=== PATIENT | female | born 1945 ===

== ENCOUNTER 2020-04-03 01:15 | Observation (INO) ==
[2020-04-03] MEDS ORDERED: DEXTROSE 50% 25 GM/50 ML VIAL IV PRN (03:13)
[2020-04-03] MEDS ORDERED: ONDANSETRON 4 MG/2 ML VIAL IV PRN (03:13)
[2020-04-03] MEDS ORDERED: GLUCAGON 1 MG VIAL IM PRN (03:13)
[2020-04-03] MEDS: LEVOTHYROXINE 100 MCG TABLET PO SCH (05:49)
[2020-04-03 06:23] LABS: Basophils % 0.6 % (0.0-0.8); Eosinophils # 0.1 10*3/uL (0.0-0.87); Eosinophils % 0.9 % (0.00-10.9); Hematocrit 26.4 VOL% (35.7-47.0); Hemoglobin 9.9 GM/DL (12.0-16.0); Immature Granulocytes % 0.7 %; Immature Granulocytes Absolute 0.04 #; Lymphocytes # 0.7 10*3/uL (1.4-4.0); Lymphocytes % 13.3 % (21.3-54.2); Mean Corpuscular HGB Conc 37.5 GM/DL (32-36); Mean Corpuscular Volume 96.4 FL (87-102); Mean Platelet Volume 9.8 FL (9.6-12.0); Monocytes % 10.5 % (1.7-12.7); Platelet Count 120 T/CUMM (130-400); Red Blood Count 2.74 MC/CUMM (3.8-5.5); Red Cell Distribution Width 12.6 % (9.3-17.3); White Blood Count 5.4 T/CUMM (4-12)
[2020-04-03 06:50] LABS: Albumin 2.2 G/DL (3.4-5.0); Osmolality,Calculated 273.5 MOS/KG (273-304); Total Protein 5.4 G/DL (6.4-8.3)
[2020-04-03] MEDS ORDERED: NON-FORMULARY MEDICATION (Omeprazole 20 mg Capsule,Delayed Release(Dr/Ec)) PO SCH (09:00)
[2020-04-03] MEDS ORDERED: ERGOCALCIFEROL 50,000 UNIT CAPSULE PO SCH (09:00)
[2020-04-03 09:05] LABS: Basophils % 0.5 % (0.0-0.8); Eosinophils # 0.1 10*3/uL (0.0-0.87); Hemoglobin 9.6 GM/DL (12.0-16.0); Immature Granulocytes % 0.9 %; Immature Granulocytes Absolute 0.05 #; Lymphocytes # 1.1 10*3/uL (1.4-4.0); Lymphocytes % 19.5 % (21.3-54.2); Mean Corpuscular HGB Conc 38.4 GM/DL (32-36); Mean Corpuscular Volume 96.2 FL (87-102); Mean Platelet Volume 9.7 FL (9.6-12.0); Monocytes % 10.4 % (1.7-12.7); Neutrophils % 66.7 % (38.7-73.9); Platelet Count 127 T/CUMM (130-400); Red Cell Distribution Width 12.9 % (9.3-17.3); White Blood Count 5.5 T/CUMM (4-12)
[2020-04-03 09:26] LABS: Albumin 2.2 G/DL (3.4-5.0); Calcium 8.8 MG/DL (8.5-10.1); Osmolality,Calculated 274.5 MOS/KG (273-304); Total Protein 5.3 G/DL (6.4-8.3)
[2020-04-03] MEDS: lisinopriL 20 MG TABLET PO SCH (10:08)
[2020-04-03] MEDS: LACTULOSE 20 GM/30 ML UDCUP PO SCH ×3 (10:08→20:56)
[2020-04-03] MEDS: PANTOPRAZOLE 40 MG TABLET PO SCH (10:08)
[2020-04-03] MEDS: SIMETHICONE CHEW 80 MG TABLET PO SCH ×4 (10:08→20:55)
[2020-04-03] MEDS: RIFAXIMIN 550 MG TABLET PO SCH ×2 (10:08→20:56)
[2020-04-03] MEDS: POTASSIUM CHLORIDE 10 MEQ TABLET PO SCH (10:08)
[2020-04-03] MEDS: hydroCHLOROthiazide 12.5 MG CAPSULE PO SCH (10:08)
[2020-04-03 10:15] LABS: Thyroid Stimulating Hormone 1.79 uIU/ml (0.358-3.74)
[2020-04-03] MEDS: MAGNESIUM OXIDE 400 MG TABLET PO SCH (10:38)
[2020-04-03] MEDS: INSULIN REGULAR 100 UNIT/ML SUBCUT SCH ×4 (10:43→20:52)
[2020-04-04] MEDS: LEVOTHYROXINE 100 MCG TABLET PO SCH (05:49)
[2020-04-04 06:49] LABS: Basophils % 0.8 % (0.0-0.8); Eosinophils # 0.2 10*3/uL (0.0-0.87); Eosinophils % 4.3 % (0.00-10.9); Hematocrit 26.7 VOL% (35.7-47.0); Hemoglobin 10.2 GM/DL (12.0-16.0); Immature Granulocytes % 0.6 %; Immature Granulocytes Absolute 0.03 #; Lymphocytes # 1.7 10*3/uL (1.4-4.0); Lymphocytes % 32.5 % (21.3-54.2); Mean Corpuscular HGB Conc 38.2 GM/DL (32-36); Mean Corpuscular Volume 96.4 FL (87-102); Mean Platelet Volume 10.9 FL (9.6-12.0); Monocytes % 13.2 % (1.7-12.7); Neutrophils % 48.6 % (38.7-73.9); Platelet Count 88 T/CUMM (130-400); Red Blood Count 2.77 MC/CUMM (3.8-5.5); Red Cell Distribution Width 12.9 % (9.3-17.3); White Blood Count 5.1 T/CUMM (4-12)
[2020-04-04 06:50] LABS: Albumin 2.2 G/DL (3.4-5.0); Bilirubin,Total 1.5 MG/DL (0.2-1.0); Calcium 9.2 MG/DL (8.5-10.1); Osmolality,Calculated 267.2 MOS/KG (273-304); Total Protein 5.5 G/DL (6.4-8.3)
[2020-04-04 07:34] LABS: Platelet Estimate Decreased
[2020-04-04] MEDS ORDERED: INFLUENZA VIRUS VACCINE 0.5 ML SYRINGE IM ONE (09:00)
[2020-04-04] MEDS: MAGNESIUM OXIDE 400 MG TABLET PO SCH (09:36)
[2020-04-04] MEDS: SIMETHICONE CHEW 80 MG TABLET PO SCH ×2 (09:36→13:14)
[2020-04-04] MEDS: POTASSIUM CHLORIDE 10 MEQ TABLET PO SCH (09:36)
[2020-04-04] MEDS: PANTOPRAZOLE 40 MG TABLET PO SCH (09:36)
[2020-04-04] MEDS: hydroCHLOROthiazide 12.5 MG CAPSULE PO SCH (09:36)
[2020-04-04] MEDS: lisinopriL 20 MG TABLET PO SCH (09:36)
[2020-04-04] MEDS: LACTULOSE 20 GM/30 ML UDCUP PO SCH ×2 (09:36→09:39)
[2020-04-04] MEDS: RIFAXIMIN 550 MG TABLET PO SCH (09:36)
[2020-04-04] MEDS: INSULIN REGULAR 100 UNIT/ML SUBCUT SCH ×2 (09:37→13:15)
[2020-04-04 12:26] VITALS: BP 166/54
== END 2020-04-04 14:50 | disposition home health service (06) ==
LOC: N.3E → SUATTDRO 02:50
PROVIDERS: ADMIT Internal Medicine; ATTEND Family Medicine

== ENCOUNTER 2021-04-10 17:25 | Inpatient (IN) ==
[2021-04-10] MEDS ORDERED: SODIUM CHLORIDE 0.9% 1,000 ML IV PRN (20:39)
[2021-04-10] MEDS ORDERED: ACETAMINOPHEN 325 MG TABLET PO PRN (20:40)
[2021-04-10] MEDS ORDERED: DEXTROSE 50% 25 GM/50 ML VIAL IV PRN (20:40)
[2021-04-10] MEDS ORDERED: MORPHINE 2 MG/1 ML SYRINGE IV PRN (20:40)
[2021-04-10] MEDS ORDERED: diphenhydrAMINE CAP 25 MG CAPSULE PO PRN (20:40)
[2021-04-10] MEDS ORDERED: ZALEPLON 5 MG CAPSULE PO PRN (20:40)
[2021-04-10] MEDS ORDERED: GLUCAGON 1 MG VIAL IM PRN ×2 (20:40)
[2021-04-10] MEDS ORDERED: hydrALAZINE 20 MG/1 ML VIAL IV PRN (20:40)
[2021-04-10] MEDS ORDERED: ONDANSETRON 4 MG/2 ML VIAL IV PRN (20:40)
[2021-04-10] MEDS ORDERED: NICOTINE 21 MG/24 HR PATCH TRANSDERM PRN (20:40)
[2021-04-10] MEDS ORDERED: guaiFENesin/DM ER 600-30 MG TABLET PO PRN (20:40)
[2021-04-10 21:10] LABS: Basophils % 0.4 % (0.0-0.8); Eosinophils # 0.1 10*3/uL (0.0-0.87); Eosinophils % 2.2 % (0.00-10.9); Hematocrit 25.6 VOL% (35.7-47.0); Hemoglobin 8.4 GM/DL (12.0-16.0); Immature Granulocytes % 1.4 %; Immature Granulocytes Absolute 0.07 #; Lymphocytes # 1.4 10*3/uL (1.4-4.0); Lymphocytes % 27.1 % (21.3-54.2); Mean Corpuscular HGB Conc 32.8 GM/DL (32-36); Mean Corpuscular Volume 107.1 FL (87-102); Mean Platelet Volume 10.9 FL (9.6-12.0); Monocytes % 9.8 % (1.7-12.7); Neutrophils % 59.1 % (38.7-73.9); Platelet Count 95 T/CUMM (130-400); Red Blood Count 2.39 MC/CUMM (3.8-5.5); Red Cell Distribution Width 17.6 % (9.3-17.3)
[2021-04-10 21:29] LABS: Calcium 9.7 MG/DL (8.5-10.1); Osmolality,Calculated 297.4 MOS/KG (273-304); Potassium 3.5 MMOL/L (3.5-5.1)
[2021-04-10 21:32] LABS: Albumin 1.8 G/DL (3.4-5.0); Bilirubin,Direct 1.03 MG/DL (0.0-0.20); Bilirubin,Indirect 1.1 MG/DL (0.0-1.0); Bilirubin,Total 2.1 MG/DL (0.20-1.00); Total Protein 5.3 G/DL (6.4-8.2)
[2021-04-10 21:36] LABS: Folate 5.03 NG/ML (5.38-24.0); Vitamin B12 682 PG/ML (211-911)
[2021-04-10] MEDS: INSULIN LISPRO 100 UNIT/ML SUBCUT SCH (22:07)
[2021-04-10 22:11] LABS: Sedimentation Rate-Westergren 30 MM/HR (0-30)
[2021-04-10] MEDS: cefTRIAXone 1,000 MG in SODIUM CHLORIDE 0.9% 100 ML IV SCH (22:18)
[2021-04-10] MEDS: AZITHROMYCIN INJ 500 MG in SODIUM CHLORIDE 0.9% 250 ML IV SCH (23:16)
[2021-04-11 05:33] LABS: Basophils % 0.8 % (0.0-0.8); Eosinophils # 0.1 10*3/uL (0.0-0.87); Eosinophils % 2.5 % (0.00-10.9); Hematocrit 25.4 VOL% (35.7-47.0); Hemoglobin 8.7 GM/DL (12.0-16.0); Immature Granulocytes % 0.6 %; Immature Granulocytes Absolute 0.03 #; Lymphocytes # 1.4 10*3/uL (1.4-4.0); Lymphocytes % 28.7 % (21.3-54.2); Mean Corpuscular HGB Conc 34.3 GM/DL (32-36); Mean Corpuscular Volume 108.1 FL (87-102); Mean Platelet Volume 12.4 FL (9.6-12.0); Monocytes % 10.2 % (1.7-12.7); Neutrophils % 57.2 % (38.7-73.9); Platelet Count 83 T/CUMM (130-400); Red Blood Count 2.35 MC/CUMM (3.8-5.5); Red Cell Distribution Width 17.9 % (9.3-17.3); White Blood Count 4.8 T/CUMM (4-12)
[2021-04-11 05:39] LABS: Hypochromasia Slight; Microcytosis Slight; Ovalocytes Slight; Platelet Estimate Decreased
[2021-04-11 06:12] LABS: Calcium 9.9 MG/DL (8.5-10.1); Osmolality,Calculated 294.6 MOS/KG (273-304)
[2021-04-11] MEDS: ALBUTEROL/IPRATROPIUM 3 ML NEB RESP TX SCH ×4 (07:00→20:18)
[2021-04-11] MEDS: DEXTROSE 50% 25 GM/50 ML SYRINGE IV PRN ×2 (07:02→20:42)
[2021-04-11 07:20] LABS: Free T4 (Free Thyroxine) 1.71 NG/DL (0.76-1.46)
[2021-04-11] MEDS: INSULIN LISPRO 100 UNIT/ML SUBCUT SCH ×4 (09:12→21:21)
[2021-04-11] MEDS: PANTOPRAZOLE 40 MG TABLET PO SCH (09:47)
[2021-04-11] MEDS: FOLIC ACID 1 MG TABLET PO SCH ×2 (09:47→20:39)
[2021-04-11] MEDS: BISACODYL 5 MG TABLET PO SCH (09:48)
[2021-04-11] MEDS: cefTRIAXone 1,000 MG in SODIUM CHLORIDE 0.9% 100 ML IV SCH (21:21)
[2021-04-11] MEDS: AZITHROMYCIN INJ 500 MG in SODIUM CHLORIDE 0.9% 250 ML IV SCH (22:53)
[2021-04-12] MEDS: ALBUTEROL/IPRATROPIUM 3 ML NEB RESP TX SCH ×4 (00:45→19:50)
[2021-04-12 04:33] LABS: Basophils % 0.5 % (0.0-0.8); Eosinophils # 0.1 10*3/uL (0.0-0.87); Eosinophils % 1.4 % (0.00-10.9); Hematocrit 21.7 VOL% (35.7-47.0); Immature Granulocytes % 0.7 %; Immature Granulocytes Absolute 0.03 #; Lymphocytes % 22.8 % (21.3-54.2); Mean Corpuscular HGB Conc 32.7 GM/DL (32-36); Mean Corpuscular Volume 109.6 FL (87-102); Mean Platelet Volume 11.5 FL (9.6-12.0); Monocytes % 9.2 % (1.7-12.7); Neutrophils % 65.4 % (38.7-73.9); White Blood Count 4.4 T/CUMM (4-12)
[2021-04-12 04:39] LABS: Hemoglobin 7.1 GM/DL (12.0-16.0); Platelet Count 70 T/CUMM (130-400); Red Blood Count 1.98 MC/CUMM (3.8-5.5)
[2021-04-12 04:56] LABS: Albumin 1.6 G/DL (3.4-5.0); Bilirubin,Total 1.6 MG/DL (0.20-1.00); Calcium 9.9 MG/DL (8.5-10.1); Osmolality,Calculated 302.3 MOS/KG (273-304); Potassium 3.6 MMOL/L (3.5-5.1); Total Protein 4.4 G/DL (6.4-8.2)
[2021-04-12 05:02] LABS: Hypochromasia 1+; Target Cells Slight
[2021-04-12 05:03] LABS: Macrocytosis Slight; Ovalocytes Slight; Platelet Estimate Decreased
[2021-04-12 08:36] LABS: Hemoglobin A1 (Alkaline) 97.8 % (96.5-98.5); Hemoglobin A2 (Alkaline) 2.2 % (1.5-3.5)
[2021-04-12] MEDS: FOLIC ACID 1 MG TABLET PO SCH ×2 (09:10→22:15)
[2021-04-12] MEDS: PANTOPRAZOLE 40 MG TABLET PO SCH (09:10)
[2021-04-12] MEDS: BISACODYL 5 MG TABLET PO SCH (09:15)
[2021-04-12] MEDS ORDERED: SODIUM CHLORIDE 0.9% 250 ML IV ONE (09:49)
[2021-04-12] MEDS: INSULIN LISPRO 100 UNIT/ML SUBCUT SCH ×4 (11:54→21:25)
[2021-04-12] MEDS ORDERED: SODIUM CHLORIDE 0.9% 1,000 ML IV PRN (14:12)
[2021-04-12] MEDS ORDERED: MAGNESIUM SULF RIDER 1 GM/100 ML PREMIX IV ONE (14:19)
[2021-04-12] MEDS: SODIUM CHLORIDE 0.9% 1,000 ML IV SCH (15:05)
[2021-04-12] MEDS: PANTOPRAZOLE 40 MG VIAL IV SCH (22:15)
[2021-04-13] MEDS: ALBUTEROL/IPRATROPIUM 3 ML NEB RESP TX SCH ×4 (00:47→20:06)
[2021-04-13] MEDS: cefTRIAXone 1,000 MG in SODIUM CHLORIDE 0.9% 100 ML IV SCH ×2 (01:10→22:21)
[2021-04-13] MEDS: AZITHROMYCIN INJ 500 MG in SODIUM CHLORIDE 0.9% 250 ML IV SCH ×2 (01:36→23:16)
[2021-04-13 05:53] LABS: Basophils % 0.7 % (0.0-0.8); Eosinophils # 0.1 10*3/uL (0.0-0.87); Eosinophils % 3.5 % (0.00-10.9); Hematocrit 21.1 VOL% (35.7-47.0); Hemoglobin 6.7 GM/DL (12.0-16.0); Immature Granulocytes % 1.2 %; Immature Granulocytes Absolute 0.05 #; Lymphocytes # 1.1 10*3/uL (1.4-4.0); Lymphocytes % 26.5 % (21.3-54.2); Mean Corpuscular HGB Conc 31.8 GM/DL (32-36); Mean Corpuscular Volume 110.5 FL (87-102); Mean Platelet Volume 11.4 FL (9.6-12.0); Monocytes % 9.7 % (1.7-12.7); Neutrophils % 58.4 % (38.7-73.9); Platelet Count 70 T/CUMM (130-400); Red Blood Count 1.91 MC/CUMM (3.8-5.5); Red Cell Distribution Width 18.6 % (9.3-17.3)
[2021-04-13 06:06] LABS: Calcium 9.6 MG/DL (8.5-10.1); Osmolality,Calculated 305.1 MOS/KG (273-304); Potassium 3.9 MMOL/L (3.5-5.1)
[2021-04-13 06:24] LABS: Hypochromasia 2+; Microcytosis 1+; Platelet Estimate Decreased
[2021-04-13] MEDS: INSULIN LISPRO 100 UNIT/ML SUBCUT SCH ×4 (08:25→22:16)
[2021-04-13] MEDS: PANTOPRAZOLE 40 MG VIAL IV SCH ×2 (08:44→22:18)
[2021-04-13] MEDS: BISACODYL 5 MG TABLET PO SCH (08:49)
[2021-04-13] MEDS: FOLIC ACID 1 MG TABLET PO SCH ×2 (08:49→22:18)
[2021-04-13] MEDS ORDERED: SODIUM CHLORIDE 0.9% 1,000 ML IV PRN (10:06)
[2021-04-13] MEDS: SODIUM CHLORIDE 0.9% 1,000 ML IV SCH (14:25)
[2021-04-13] MEDS: DEXTROSE 5% NACL 0.45% 1,000 ML IV SCH ×3 (14:33→23:20)
[2021-04-14] MEDS: ALBUTEROL/IPRATROPIUM 3 ML NEB RESP TX SCH ×4 (00:36→18:42)
[2021-04-14 05:23] LABS: Basophils % 0.6 % (0.0-0.8); Eosinophils # 0.1 10*3/uL (0.0-0.87); Eosinophils % 4.1 % (0.00-10.9); Hematocrit 27.3 VOL% (35.7-47.0); Immature Granulocytes % 0.9 %; Immature Granulocytes Absolute 0.03 #; Lymphocytes % 29.8 % (21.3-54.2); Mean Corpuscular HGB Conc 31.9 GM/DL (32-36); Mean Corpuscular Volume 104.6 FL (87-102); Monocytes % 9.7 % (1.7-12.7); Neutrophils % 54.9 % (38.7-73.9); Platelet Count 56 T/CUMM (130-400); Red Cell Distribution Width 23.8 % (9.3-17.3); White Blood Count 3.4 T/CUMM (4-12)
[2021-04-14 05:37] LABS: Hemoglobin 8.7 GM/DL (12.0-16.0); Red Blood Count 2.61 MC/CUMM (3.8-5.5)
[2021-04-14 05:39] LABS: Calcium 9.3 MG/DL (8.5-10.1); Osmolality,Calculated 302.6 MOS/KG (273-304); Potassium 3.7 MMOL/L (3.5-5.1)
[2021-04-14 05:57] LABS: Hypochromasia Slight; Microcytosis Slight; Platelet Estimate Decreased
[2021-04-14] MEDS: DEXTROSE 5% NACL 0.45% 1,000 ML IV SCH ×3 (06:18→17:11)
[2021-04-14] MEDS: INSULIN LISPRO 100 UNIT/ML SUBCUT SCH ×4 (08:09→21:27)
[2021-04-14] MEDS: FOLIC ACID 1 MG TABLET PO SCH ×2 (10:16→21:22)
[2021-04-14] MEDS: BISACODYL 5 MG TABLET PO SCH (10:16)
[2021-04-14] MEDS: PANTOPRAZOLE 40 MG VIAL IV SCH ×2 (10:17→21:26)
[2021-04-14] MEDS: cefTRIAXone 1,000 MG in SODIUM CHLORIDE 0.9% 100 ML IV SCH (21:27)
[2021-04-14] MEDS: AZITHROMYCIN INJ 500 MG in SODIUM CHLORIDE 0.9% 250 ML IV SCH (22:30)
[2021-04-15] MEDS: ALBUTEROL/IPRATROPIUM 3 ML NEB RESP TX SCH ×3 (00:13→13:28)
[2021-04-15] MEDS: DEXTROSE 5% NACL 0.45% 1,000 ML IV SCH ×2 (05:30→10:22)
[2021-04-15 07:33] LABS: Basophils % 0.4 % (0.0-0.8); Eosinophils # 0.2 10*3/uL (0.0-0.87); Eosinophils % 7.8 % (0.00-10.9); Hematocrit 25.8 VOL% (35.7-47.0); Hemoglobin 8.3 GM/DL (12.0-16.0); Immature Granulocytes % 1.1 %; Immature Granulocytes Absolute 0.03 #; Lymphocytes # 0.8 10*3/uL (1.4-4.0); Lymphocytes % 31.2 % (21.3-54.2); Mean Corpuscular HGB Conc 32.2 GM/DL (32-36); Mean Platelet Volume 10.9 FL (9.6-12.0); Monocytes % 7.4 % (1.7-12.7); Neutrophils % 52.1 % (38.7-73.9); Platelet Count 46 T/CUMM (130-400); Red Blood Count 2.53 MC/CUMM (3.8-5.5); Red Cell Distribution Width 23.4 % (9.3-17.3); White Blood Count 2.7 T/CUMM (4-12)
[2021-04-15 07:42] LABS: Calcium 9.1 MG/DL (8.5-10.1); Osmolality,Calculated 296.7 MOS/KG (273-304); Potassium 3.4 MMOL/L (3.5-5.1)
[2021-04-15 08:28] LABS: Platelet Estimate Decreased
[2021-04-15 08:29] LABS: Anisocytosis 2+; Burr Cells 1+; Target Cells Few
[2021-04-15 08:30] LABS: Macrocytosis 1+; Poikilocytosis 1+
[2021-04-15] MEDS: FOLIC ACID 1 MG TABLET PO SCH (10:16)
[2021-04-15] MEDS: BISACODYL 5 MG TABLET PO SCH (10:16)
[2021-04-15] MEDS: PANTOPRAZOLE 40 MG VIAL IV SCH (10:22)
[2021-04-15] MEDS: INSULIN LISPRO 100 UNIT/ML SUBCUT SCH ×3 (10:22→16:32)
[2021-04-15 16:06] VITALS: BP 135/48
== END 2021-04-15 18:45 | DRG 193 ==
LOC: N.TELES 20:07 → SUATTDRO 20:07
PROVIDERS: ADMIT Internal Medicine; ATTEND Emergency Medicine

== ENCOUNTER 2021-05-03 15:55 | Inpatient (IN) ==
[2021-05-03] MEDS ORDERED: ALBUTEROL 2.5 MG/3 ML NEB RESP TX PRN (16:07)
[2021-05-03] MEDS ORDERED: MORPHINE 2 MG/1 ML SYRINGE IV PRN (16:08)
[2021-05-03] MEDS ORDERED: ACETAMINOPHEN 325 MG TABLET PO PRN (16:08)
[2021-05-03] MEDS ORDERED: ONDANSETRON 4 MG/2 ML VIAL IV PRN (16:08)
[2021-05-03] MEDS ORDERED: PANTOPRAZOLE 40 MG VIAL IV SCH (21:00)
[2021-05-03] MEDS ORDERED: NOREPINEPHRINE 8 MG in SODIUM CHLORIDE 0.9% 242 ML IV PRN (21:16)
[2021-05-03 21:18] LABS: Basophils % 0.2 % (0.0-0.8); Eosinophils % 0.4 % (0.00-10.9); Hematocrit 27.7 VOL% (35.7-47.0); Hemoglobin 9.2 GM/DL (12.0-16.0); Immature Granulocytes % 0.6 %; Immature Granulocytes Absolute 0.03 #; Lymphocytes # 0.5 10*3/uL (1.4-4.0); Lymphocytes % 10.3 % (21.3-54.2); Mean Corpuscular HGB Conc 33.2 GM/DL (32-36); Mean Corpuscular Volume 98.2 FL (87-102); Mean Platelet Volume 12.1 FL (9.6-12.0); Neutrophils % 85.5 % (38.7-73.9); Platelet Count 68 T/CUMM (130-400); Red Blood Count 2.82 MC/CUMM (3.8-5.5); Red Cell Distribution Width 24.1 % (9.3-17.3); White Blood Count 4.7 T/CUMM (4-12)
[2021-05-03 21:35] LABS: Bilirubin,Urine Negative (Negative); Blood, Urine Moderate mg/dL (Negative); Glucose,Urine (UA) Negative (Negative); Ketones,Urine 5 mg/dL (Negative); Nitrite,Urine Negative (Negative); Protein,Urine 100 MG/DL; Urine Appearance CLOUDY (Clear); Urine Color Red (Yellow); Urine Urobilinogen < 2.0 EU/DL (<2.0)
[2021-05-03 21:40] LABS: Albumin 1.7 G/DL (3.4-5.0); Bilirubin,Total 1.5 MG/DL (0.20-1.00); Calcium 10.9 MG/DL (8.5-10.1); Osmolality,Calculated 298.6 MOS/KG (273-304); Potassium 4.2 MMOL/L (3.5-5.1); Total Protein 5.5 G/DL (6.4-8.2)
[2021-05-03] MEDS: HYDROCORTISONE 100 MG VIAL IV SCH (21:59)
[2021-05-03] MEDS ORDERED: MEROPENEM 500 MG in SODIUM CHLORIDE 0.9% 100 ML IV SCH (22:00)
[2021-05-03] MEDS ORDERED: DEXTROSE 50% 25 GM/50 ML SYRINGE IV PRN (22:08)
[2021-05-03] MEDS ORDERED: GLUCAGON 1 MG VIAL IM PRN (22:08)
[2021-05-03] MEDS: LACTATED RINGERS 1,000 ML IV SCH (22:47)
[2021-05-03] MEDS ORDERED: LEVOFLOXACIN INJ 750 MG/150 ML PREMIX IV SCH (23:00)
[2021-05-04] MEDS: HYDROCORTISONE 100 MG VIAL IV SCH ×4 (03:27→21:10)
[2021-05-04] MEDS: LEVOTHYROXINE 100 MCG TABLET PO SCH (05:59)
[2021-05-04] MEDS: MEROPENEM 500 MG in SODIUM CHLORIDE 0.9% 100 ML IV SCH ×3 (05:59→21:10)
[2021-05-04 06:36] LABS: Hematocrit 27.2 VOL% (35.7-47.0); Hemoglobin 9.1 GM/DL (12.0-16.0); Immature Granulocytes Absolute 0.06 #; Lymphocytes # 0.7 10*3/uL (1.4-4.0); Lymphocytes % 11.9 % (21.3-54.2); Mean Corpuscular HGB Conc 33.5 GM/DL (32-36); Mean Corpuscular Volume 97.5 FL (87-102); Monocytes % 1.4 % (1.7-12.7); Neutrophils % 85.7 % (38.7-73.9); Platelet Count 71 T/CUMM (130-400); Red Blood Count 2.79 MC/CUMM (3.8-5.5); White Blood Count 5.8 T/CUMM (4-12)
[2021-05-04 07:04] LABS: Hypochromia 1+; Microcytosis 1+; Ovalocytes Slight; Platelet Estimate Decreased
[2021-05-04 07:08] LABS: Albumin 1.6 G/DL (3.4-5.0); Osmolality,Calculated 298.7 MOS/KG (273-304); Potassium 4.7 MMOL/L (3.5-5.1); Total Protein 5.4 G/DL (6.4-8.2)
[2021-05-04 10:33] LABS: RBC,Urine 48 /HPF (0-4)
[2021-05-04] MEDS: LACTATED RINGERS 1,000 ML IV SCH ×2 (10:38→20:30)
[2021-05-04] MEDS: INSULIN REGULAR 100 UNIT/ML SUBCUT SCH ×4 (10:39→20:28)
[2021-05-04] MEDS: GABAPENTIN 100 MG CAPSULE PO SCH ×2 (10:40→20:29)
[2021-05-04] MEDS: RIFAXIMIN 550 MG TABLET PO SCH ×2 (10:40→20:29)
[2021-05-04] MEDS: FERROUS SULFATE 325 MG TABLET PO SCH ×2 (10:41→20:30)
[2021-05-04] MEDS: ENOXAPARIN 30 MG/0.3 ML SYRINGE SUBCUT SCH (10:42)
[2021-05-04] MEDS: ALBUTEROL/IPRATROPIUM 3 ML NEB RESP TX SCH ×2 (13:50→20:30)
[2021-05-04] MEDS: CITALOPRAM 20 MG TABLET PO SCH (20:29)
[2021-05-04] MEDS: MIRTAZAPINE 15 MG TABLET PO SCH (20:30)
[2021-05-05] MEDS: ALBUTEROL/IPRATROPIUM 3 ML NEB RESP TX SCH ×4 (03:05→19:47)
[2021-05-05] MEDS: HYDROCORTISONE 100 MG VIAL IV SCH ×4 (03:19→20:52)
[2021-05-05] MEDS: MEROPENEM 500 MG in SODIUM CHLORIDE 0.9% 100 ML IV SCH ×2 (06:13→16:19)
[2021-05-05] MEDS: LEVOTHYROXINE 100 MCG TABLET PO SCH (06:13)
[2021-05-05 06:55] LABS: Calcium 10.3 MG/DL (8.5-10.1); Osmolality,Calculated 285.5 MOS/KG (273-304); Potassium 4.3 MMOL/L (3.5-5.1)
[2021-05-05] MEDS: LACTATED RINGERS 1,000 ML IV SCH ×4 (07:35→20:56)
[2021-05-05 08:13] LABS: Basophils % 0.1 % (0.0-0.8); Hematocrit 23.2 VOL% (35.7-47.0); Hemoglobin 7.8 GM/DL (12.0-16.0); Immature Granulocytes % 1.1 %; Immature Granulocytes Absolute 0.08 #; Lymphocytes # 0.4 10*3/uL (1.4-4.0); Mean Corpuscular HGB Conc 33.6 GM/DL (32-36); Mean Corpuscular Volume 98.3 FL (87-102); Mean Platelet Volume 11.2 FL (9.6-12.0); Monocytes % 3.7 % (1.7-12.7); Neutrophils % 90.1 % (38.7-73.9); Platelet Count 63 T/CUMM (130-400); Red Blood Count 2.36 MC/CUMM (3.8-5.5); Red Cell Distribution Width 24.5 % (9.3-17.3); White Blood Count 7.1 T/CUMM (4-12)
[2021-05-05 08:32] LABS: Hypochromia 1+; Microcytosis 1+
[2021-05-05 08:33] LABS: Acanthocytes Few; Ovalocytes Slight; Platelet Estimate Decreased; Target Cells Slight
[2021-05-05] MEDS: GABAPENTIN 100 MG CAPSULE PO SCH ×2 (09:15→20:52)
[2021-05-05] MEDS: SODIUM BICARBONATE 650 MG TABLET PO SCH ×2 (09:15→20:52)
[2021-05-05] MEDS: RIFAXIMIN 550 MG TABLET PO SCH ×2 (09:15→20:52)
[2021-05-05] MEDS: FERROUS SULFATE 325 MG TABLET PO SCH ×2 (09:15→20:52)
[2021-05-05] MEDS: PANTOPRAZOLE 40 MG TABLET PO SCH (09:15)
[2021-05-05] MEDS: ENOXAPARIN 30 MG/0.3 ML SYRINGE SUBCUT SCH (09:16)
[2021-05-05] MEDS: INSULIN REGULAR 100 UNIT/ML SUBCUT SCH ×4 (09:16→20:51)
[2021-05-05] MEDS ORDERED: ERTAPENEM 500 MG in SODIUM CHLORIDE 0.9% 100 ML IV SCH (12:00)
[2021-05-05] MEDS: CITALOPRAM 20 MG TABLET PO SCH (20:52)
[2021-05-05] MEDS: MIRTAZAPINE 15 MG TABLET PO SCH (20:52)
[2021-05-06] MEDS: HYDROCORTISONE 100 MG VIAL IV SCH ×4 (02:22→22:10)
[2021-05-06] MEDS: MEROPENEM 500 MG in SODIUM CHLORIDE 0.9% 100 ML IV SCH ×3 (02:22→17:07)
[2021-05-06] MEDS: ALBUTEROL/IPRATROPIUM 3 ML NEB RESP TX SCH ×4 (02:38→19:13)
[2021-05-06 05:15] LABS: Basophils % 0.1 % (0.0-0.8); Hemoglobin 7.6 GM/DL (12.0-16.0); Immature Granulocytes % 1.4 %; Immature Granulocytes Absolute 0.11 #; Lymphocytes # 0.5 10*3/uL (1.4-4.0); Lymphocytes % 6.2 % (21.3-54.2); Mean Corpuscular Volume 98.3 FL (87-102); Monocytes % 4.9 % (1.7-12.7); Neutrophils % 87.4 % (38.7-73.9); Platelet Count 61 T/CUMM (130-400); Red Blood Count 2.34 MC/CUMM (3.8-5.5)
[2021-05-06 05:35] LABS: Hypochromia 1+
[2021-05-06 05:36] LABS: Acanthocytes Few; Anisocytosis 1+; Microcytosis 1+; Ovalocytes Slight
[2021-05-06 05:37] LABS: Platelet Estimate Decreased
[2021-05-06] MEDS: LEVOTHYROXINE 100 MCG TABLET PO SCH (05:41)
[2021-05-06] MEDS: LACTATED RINGERS 1,000 ML IV SCH ×2 (05:41→15:44)
[2021-05-06 05:53] LABS: % Iron Saturation 79.2 % (18-50); Calcium 10.5 MG/DL (8.5-10.1); Ferritin 2161.9 ng/mL (8-252); Osmolality,Calculated 285.7 MOS/KG (273-304); Potassium 4.2 MMOL/L (3.5-5.1)
[2021-05-06] MEDS: PANTOPRAZOLE 40 MG TABLET PO SCH (08:59)
[2021-05-06] MEDS: FERROUS SULFATE 325 MG TABLET PO SCH ×2 (08:59→22:09)
[2021-05-06] MEDS: GABAPENTIN 100 MG CAPSULE PO SCH ×2 (08:59→22:09)
[2021-05-06] MEDS: INSULIN REGULAR 100 UNIT/ML SUBCUT SCH ×4 (08:59→22:09)
[2021-05-06] MEDS: RIFAXIMIN 550 MG TABLET PO SCH ×2 (08:59→22:09)
[2021-05-06] MEDS: SODIUM BICARBONATE 650 MG TABLET PO SCH ×2 (09:00→22:10)
[2021-05-06] MEDS: ENOXAPARIN 30 MG/0.3 ML SYRINGE SUBCUT SCH (09:00)
[2021-05-06] MEDS: MENTHOL/ZINC OXIDE OINT 71 GM JAR TOP SCH ×2 (15:45→22:10)
[2021-05-06] MEDS: CITALOPRAM 20 MG TABLET PO SCH (22:09)
[2021-05-06] MEDS: MIRTAZAPINE 15 MG TABLET PO SCH (22:09)
[2021-05-07] MEDS: ALBUTEROL/IPRATROPIUM 3 ML NEB RESP TX SCH ×4 (01:22→20:11)
[2021-05-07] MEDS: MEROPENEM 500 MG in SODIUM CHLORIDE 0.9% 100 ML IV SCH ×3 (02:05→18:12)
[2021-05-07] MEDS: LACTATED RINGERS 1,000 ML IV SCH ×3 (02:05→18:11)
[2021-05-07] MEDS: HYDROCORTISONE 100 MG VIAL IV SCH ×4 (02:06→22:23)
[2021-05-07 05:03] LABS: Basophils % 0.1 % (0.0-0.8); Hematocrit 23.1 VOL% (35.7-47.0); Hemoglobin 7.7 GM/DL (12.0-16.0); Immature Granulocytes % 2.1 %; Immature Granulocytes Absolute 0.14 #; Lymphocytes # 0.4 10*3/uL (1.4-4.0); Lymphocytes % 6.5 % (21.3-54.2); Mean Corpuscular HGB Conc 33.3 GM/DL (32-36); Mean Platelet Volume 11.9 FL (9.6-12.0); Monocytes % 4.3 % (1.7-12.7); NRBC # 0.02 10*3/uL; Red Blood Count 2.31 MC/CUMM (3.8-5.5); Red Cell Distribution Width 25.2 % (9.3-17.3); White Blood Count 6.8 T/CUMM (4-12)
[2021-05-07 05:09] LABS: Platelet Count 63 T/CUMM (130-400)
[2021-05-07] MEDS ORDERED: ALBUMIN 5% 25 GM/500 ML VIAL IV ONE (05:13)
[2021-05-07 05:22] LABS: Albumin 1.6 G/DL (3.4-5.0); Calcium 10.5 MG/DL (8.5-10.1); Osmolality,Calculated 285.1 MOS/KG (273-304); Potassium 4.6 MMOL/L (3.5-5.1); Total Protein 4.8 G/DL (6.4-8.2)
[2021-05-07] MEDS: LEVOTHYROXINE 100 MCG TABLET PO SCH (05:29)
[2021-05-07 07:16] LABS: Lymphocytes 4 % (20-55); Segmented Neutrophils 94 % (50-85); Total Cells Counted 100
[2021-05-07 07:17] LABS: Burr Cells Few; Elliptocytes Few; Platelet Estimate Decreased; Target Cells Few
[2021-05-07 07:18] LABS: Ovalocytes Few; Schistocytes Slight
[2021-05-07] MEDS: ENOXAPARIN 30 MG/0.3 ML SYRINGE SUBCUT SCH (09:59)
[2021-05-07] MEDS: INSULIN REGULAR 100 UNIT/ML SUBCUT SCH ×4 (10:00→22:16)
[2021-05-07] MEDS: MENTHOL/ZINC OXIDE OINT 71 GM JAR TOP SCH ×2 (10:02→22:16)
[2021-05-07] MEDS: GABAPENTIN 100 MG CAPSULE PO SCH ×2 (10:13→22:15)
[2021-05-07] MEDS: RIFAXIMIN 550 MG TABLET PO SCH ×2 (10:14→22:15)
[2021-05-07] MEDS: FERROUS SULFATE 325 MG TABLET PO SCH ×2 (10:14→22:15)
[2021-05-07] MEDS: PANTOPRAZOLE 40 MG TABLET PO SCH (10:14)
[2021-05-07] MEDS: SODIUM BICARBONATE 650 MG TABLET PO SCH ×2 (10:14→22:15)
[2021-05-07] MEDS: CITALOPRAM 20 MG TABLET PO SCH (22:15)
[2021-05-07] MEDS: INSULIN GLARGINE 100 UNIT/ML SUBCUT SCH (22:16)
[2021-05-07] MEDS: MIRTAZAPINE 15 MG TABLET PO SCH (22:16)
[2021-05-08] MEDS: MEROPENEM 500 MG in SODIUM CHLORIDE 0.9% 100 ML IV SCH ×3 (00:45→17:11)
[2021-05-08] MEDS: ALBUTEROL/IPRATROPIUM 3 ML NEB RESP TX SCH ×4 (02:00→22:04)
[2021-05-08] MEDS: HYDROCORTISONE 100 MG VIAL IV SCH ×3 (03:23→17:11)
[2021-05-08 06:15] LABS: Hematocrit 23.8 VOL% (35.7-47.0); Hemoglobin 7.8 GM/DL (12.0-16.0); Immature Granulocytes % 0.7 %; Immature Granulocytes Absolute 0.04 #; Lymphocytes # 0.6 10*3/uL (1.4-4.0); Lymphocytes % 10.4 % (21.3-54.2); Mean Corpuscular HGB Conc 32.8 GM/DL (32-36); Mean Corpuscular Volume 99.6 FL (87-102); Monocytes % 4.4 % (1.7-12.7); NRBC # 0.07 10*3/uL; Neutrophils % 84.5 % (38.7-73.9); Platelet Count 51 T/CUMM (130-400); Red Blood Count 2.39 MC/CUMM (3.8-5.5); Red Cell Distribution Width 25.1 % (9.3-17.3); White Blood Count 5.7 T/CUMM (4-12)
[2021-05-08] MEDS: LEVOTHYROXINE 100 MCG TABLET PO SCH (06:29)
[2021-05-08 06:35] LABS: Band Neutrophils 8 % (0-10); Hypochromia 1+; Lymphocytes 8 % (20-55); Microcytosis 1+; Platelet Estimate Decreased; Segmented Neutrophils 81 % (50-85); Total Cells Counted 100
[2021-05-08 06:44] LABS: Calcium 10.6 MG/DL (8.5-10.1); Osmolality,Calculated 287.8 MOS/KG (273-304); Potassium 4.3 MMOL/L (3.5-5.1)
[2021-05-08] MEDS ORDERED: SODIUM CHLORIDE 0.9% 250 ML IV ONE (08:11)
[2021-05-08] MEDS ORDERED: ALBUTEROL/IPRATROPIUM 3 ML NEB RESP TX ONE (08:15)
[2021-05-08] MEDS: LACTATED RINGERS 1,000 ML IV SCH ×2 (08:34→11:22)
[2021-05-08] MEDS: MENTHOL/ZINC OXIDE OINT 71 GM JAR TOP SCH ×2 (08:35→22:25)
[2021-05-08] MEDS: INSULIN REGULAR 100 UNIT/ML SUBCUT SCH ×4 (08:35→22:27)
[2021-05-08 08:39] LABS: Basophils % 0.2 % (0.0-0.8); Hematocrit 23.1 VOL% (35.7-47.0); Hemoglobin 7.6 GM/DL (12.0-16.0); Immature Granulocytes % 0.7 %; Immature Granulocytes Absolute 0.04 #; Lymphocytes # 0.6 10*3/uL (1.4-4.0); Mean Corpuscular HGB Conc 32.9 GM/DL (32-36); Mean Corpuscular Volume 99.6 FL (87-102); Monocytes % 3.8 % (1.7-12.7); NRBC # 0.07 10*3/uL; Neutrophils % 85.3 % (38.7-73.9); Red Blood Count 2.32 MC/CUMM (3.8-5.5); Red Cell Distribution Width 25.2 % (9.3-17.3); White Blood Count 5.8 T/CUMM (4-12)
[2021-05-08 08:40] LABS: Platelet Count 50 T/CUMM (130-400)
[2021-05-08 08:48] LABS: ABG Base Excess -4.6 MMOL/L (-2.5-2.5); ABG HCO3 20.5 MMOL/L (20-26); ABG Oxygen Saturation 91.9 % (95-100); ABG PCO2 44.8 MM HG (35-48); ABG PH 7.293 (7.35-7.45); ABG PO2 67.9 MM HG (80-95); ABG TCO2 20.6 MMOL/L (23-27)
[2021-05-08 08:55] LABS: Alanine Aminotransferase 43 U/L (13-56); Albumin 1.6 G/DL (3.4-5.0); Alkaline Phosphatase 238 U/L (45-117); Aspartate Amino Transferase 67 U/L (0-37); Blood Urea Nitrogen 38 MG/DL (7-18); Calcium 10.4 MG/DL (8.5-10.1); Carbon Dioxide 22 MMOL/L (21-32); Estimated Glom Filtration Rate 18 ML/MIN; Glucose 176 MG/DL (74-106); Osmolality,Calculated 291.4 MOS/KG (273-304); Potassium 4.4 MMOL/L (3.5-5.1); Sodium 140 MMOL/L (136-145); Total Protein 4.7 G/DL (6.4-8.2)
[2021-05-08] MEDS ORDERED: ALBUMIN 25% 25 GM/100 ML VIAL IV ONE (09:00)
[2021-05-08] MEDS: ENOXAPARIN 30 MG/0.3 ML SYRINGE SUBCUT SCH (09:34)
[2021-05-08] MEDS: GABAPENTIN 100 MG CAPSULE PO SCH ×2 (10:16→22:35)
[2021-05-08] MEDS: SODIUM BICARBONATE 650 MG TABLET PO SCH ×2 (10:16→22:36)
[2021-05-08] MEDS: FERROUS SULFATE 325 MG TABLET PO SCH ×2 (10:16→22:27)
[2021-05-08] MEDS: PANTOPRAZOLE 40 MG TABLET PO SCH (10:16)
[2021-05-08] MEDS: RIFAXIMIN 550 MG TABLET PO SCH ×2 (10:16→22:36)
[2021-05-08] MEDS ORDERED: FUROSEMIDE 20 MG/2 ML VIAL IV ONE (10:31)
[2021-05-08 11:15] LABS: ABG Base Excess -4.3 MMOL/L (-2.5-2.5); ABG HCO3 20.8 MMOL/L (20-26); ABG Oxygen Saturation 94.9 % (95-100); ABG PO2 78.7 MM HG (80-95)
[2021-05-08] MEDS: CITALOPRAM 20 MG TABLET PO SCH (22:26)
[2021-05-08] MEDS: INSULIN GLARGINE 100 UNIT/ML SUBCUT SCH (22:27)
[2021-05-08] MEDS: MIRTAZAPINE 15 MG TABLET PO SCH (22:35)
[2021-05-09] MEDS: ALBUTEROL/IPRATROPIUM 3 ML NEB RESP TX SCH ×4 (02:00→20:04)
[2021-05-09 02:11] LABS: Hematocrit 19.3 VOL% (35.7-47.0); Immature Granulocytes % 4.3 %; Immature Granulocytes Absolute 0.24 #; Lymphocytes # 0.5 10*3/uL (1.4-4.0); Lymphocytes % 8.2 % (21.3-54.2); Mean Corpuscular HGB Conc 33.2 GM/DL (32-36); Mean Corpuscular Volume 98.5 FL (87-102); Monocytes % 2.8 % (1.7-12.7); NRBC # 0.04 10*3/uL; Neutrophils % 84.7 % (38.7-73.9); Red Blood Count 1.96 MC/CUMM (3.8-5.5); Red Cell Distribution Width 25.1 % (9.3-17.3); White Blood Count 5.6 T/CUMM (4-12)
[2021-05-09] MEDS: MEROPENEM 500 MG in SODIUM CHLORIDE 0.9% 100 ML IV SCH ×3 (02:13→19:36)
[2021-05-09] MEDS: HYDROCORTISONE 100 MG VIAL IV SCH ×4 (02:13→22:02)
[2021-05-09 02:17] LABS: Hemoglobin 6.4 GM/DL (12.0-16.0); Platelet Count 37 T/CUMM (130-400)
[2021-05-09 02:34] LABS: Albumin 2.1 G/DL (3.4-5.0); Bilirubin,Total 1.6 MG/DL (0.20-1.00); Calcium 10.5 MG/DL (8.5-10.1); Osmolality,Calculated 291.4 MOS/KG (273-304); Potassium 4.7 MMOL/L (3.5-5.1); Total Protein 4.7 G/DL (6.4-8.2)
[2021-05-09] MEDS ORDERED: SODIUM CHLORIDE 0.9% 1,000 ML IV PRN (02:35)
[2021-05-09 03:58] LABS: Anisocytosis 1+; Band Neutrophils 7 % (0-10); Hypochromia 1+; Lymphocytes 4 % (20-55); Metamyelocytes 1 %; Microcytosis 1+; Segmented Neutrophils 79 % (50-85); Total Cells Counted 100
[2021-05-09 03:59] LABS: Ovalocytes Slight; Platelet Estimate Decreased
[2021-05-09] MEDS: LEVOTHYROXINE 100 MCG TABLET PO SCH (06:44)
[2021-05-09] MEDS: INSULIN REGULAR 100 UNIT/ML SUBCUT SCH ×4 (07:45→22:01)
[2021-05-09 08:02] LABS: Allen Test Positive
[2021-05-09 08:03] LABS: ABG Base Excess -5.9 MMOL/L (-2.5-2.5); ABG HCO3 20.4 MMOL/L (20-26); ABG Oxygen Saturation 86.7 % (95-100); ABG PCO2 44.2 MM HG (35-48); ABG PH 7.283 (7.35-7.45); ABG PO2 55.7 MM HG (80-95); ABG TCO2 21.8 MMOL/L (23-27)
[2021-05-09] MEDS ORDERED: ALBUMIN 25% 25 GM/100 ML VIAL IV ONE ×2 (09:01→10:30)
[2021-05-09] MEDS ORDERED: VANCOMYCIN INJ 1,750 MG in SODIUM CHLORIDE 0.9% 500 ML IV ONE (11:00)
[2021-05-09] MEDS ORDERED: GENTAMICIN INJ 120 MG/100 ML PREMIX IV SCH (12:00)
[2021-05-09] MEDS ORDERED: SODIUM BICARBONATE 50 MEQ/50 ML VIAL IV ONE ×2 (12:06→12:09)
[2021-05-09] MEDS ORDERED: VECURONIUM 10 MG VIAL IV ONE ×2 (12:10→12:15)
[2021-05-09] MEDS ORDERED: ETOMIDATE 20 MG/10 ML VIAL IV ONE ×2 (12:10→12:15)
[2021-05-09] MEDS ORDERED: GENTAMICIN INJ 200 MG in SODIUM CHLORIDE 0.9% 100 ML IV ONE (12:30)
[2021-05-09 14:06] LABS: ABG Base Excess -3.5 MMOL/L (-2.5-2.5); ABG HCO3 21.5 MMOL/L (20-26); ABG PCO2 34.2 MM HG (35-48); ABG PH 7.393 (7.35-7.45); ABG TCO2 19.5 MMOL/L (23-27)
[2021-05-09] MEDS: LACTULOSE 20 GM/30 ML UDCUP PO SCH ×5 (17:04→21:57)
[2021-05-09] MEDS: FERROUS SULFATE 325 MG TABLET PO SCH ×2 (17:25→21:58)
[2021-05-09] MEDS: PANTOPRAZOLE 40 MG TABLET PO SCH (17:25)
[2021-05-09] MEDS: RIFAXIMIN 550 MG TABLET PO SCH ×2 (17:25→21:58)
[2021-05-09] MEDS: SODIUM BICARBONATE 650 MG TABLET PO SCH ×2 (17:26→21:58)
[2021-05-09] MEDS: GABAPENTIN 100 MG CAPSULE PO SCH ×2 (17:26→21:59)
[2021-05-09] MEDS: MENTHOL/ZINC OXIDE OINT 71 GM JAR TOP SCH ×2 (17:27→22:00)
[2021-05-09] MEDS: MIRTAZAPINE 15 MG TABLET PO SCH (21:58)
[2021-05-09] MEDS: CITALOPRAM 20 MG TABLET PO SCH (21:59)
[2021-05-09] MEDS: INSULIN GLARGINE 100 UNIT/ML SUBCUT SCH (22:01)
[2021-05-10 01:13] LABS: Basophils % 0.3 % (0.0-0.8); Hematocrit 22.3 VOL% (35.7-47.0); Hemoglobin 7.7 GM/DL (12.0-16.0); Immature Granulocytes % 1.7 %; Lymphocytes # 0.4 10*3/uL (1.4-4.0); Lymphocytes % 7.6 % (21.3-54.2); Mean Corpuscular HGB Conc 34.5 GM/DL (32-36); Mean Corpuscular Volume 89.2 FL (87-102); Monocytes % 3.3 % (1.7-12.7); NRBC # 0.07 10*3/uL; Neutrophils % 87.1 % (38.7-73.9); Red Cell Distribution Width 26.5 % (9.3-17.3); White Blood Count 5.8 T/CUMM (4-12)
[2021-05-10 01:16] LABS: Platelet Count 31 T/CUMM (130-400)
[2021-05-10 01:35] LABS: Osmolality,Calculated 293.5 MOS/KG (273-304); Potassium 4.2 MMOL/L (3.5-5.1)
[2021-05-10] MEDS: ALBUTEROL/IPRATROPIUM 3 ML NEB RESP TX SCH ×4 (01:36→19:20)
[2021-05-10 04:26] LABS: ABG Base Excess -3.9 MMOL/L (-2.5-2.5); ABG HCO3 21.1 MMOL/L (20-26); ABG Oxygen Saturation 94.8 % (95-100); ABG PCO2 36.6 MM HG (35-48); ABG PH 7.367 (7.35-7.45); ABG PO2 75.1 MM HG (80-95); ABG TCO2 19.7 MMOL/L (23-27)
[2021-05-10 04:28] LABS: Band Neutrophils 4 % (0-10); Lymphocytes 2 % (20-55); Nucleated Red Blood Cells 2 (0-5); Platelet Estimate Decreased; Segmented Neutrophils 91 % (50-85); Total Cells Counted 100
[2021-05-10 04:29] LABS: Anisocytosis 2+; Microcytosis 1+; Schistocytes Few
[2021-05-10 04:30] LABS: Macrocytosis 1+; Ovalocytes Slight; Target Cells Slight
[2021-05-10] MEDS: HYDROCORTISONE 100 MG VIAL IV SCH ×3 (05:54→23:02)
[2021-05-10] MEDS: LEVOTHYROXINE 100 MCG TABLET PO SCH (05:56)
[2021-05-10] MEDS: MEROPENEM 500 MG in SODIUM CHLORIDE 0.9% 100 ML IV SCH ×2 (05:56→17:38)
[2021-05-10 08:09] LABS: Basophils % 0.6 % (0.0-0.8); Eosinophils % 0.2 % (0.00-10.9); Hematocrit 22.9 VOL% (35.7-47.0); Hemoglobin 7.9 GM/DL (12.0-16.0); Immature Granulocytes % 1.4 %; Immature Granulocytes Absolute 0.09 #; Lymphocytes # 0.5 10*3/uL (1.4-4.0); Lymphocytes % 8.2 % (21.3-54.2); Mean Corpuscular HGB Conc 34.5 GM/DL (32-36); Mean Corpuscular Volume 88.8 FL (87-102); Monocytes % 3.5 % (1.7-12.7); NRBC # 0.09 10*3/uL; Neutrophils % 86.1 % (38.7-73.9); Red Blood Count 2.58 MC/CUMM (3.8-5.5); Red Cell Distribution Width 26.5 % (9.3-17.3); White Blood Count 6.6 T/CUMM (4-12)
[2021-05-10 08:11] LABS: Platelet Count 30 T/CUMM (130-400)
[2021-05-10] MEDS: LACTULOSE 20 GM/30 ML UDCUP PO SCH ×3 (08:25→22:28)
[2021-05-10] MEDS: INSULIN REGULAR 100 UNIT/ML SUBCUT SCH ×4 (08:25→22:54)
[2021-05-10] MEDS: SODIUM BICARBONATE 650 MG TABLET PO SCH ×2 (08:26→22:28)
[2021-05-10] MEDS: RIFAXIMIN 550 MG TABLET PO SCH ×2 (08:26→22:29)
[2021-05-10] MEDS: FERROUS SULFATE 325 MG TABLET PO SCH ×2 (08:26→22:29)
[2021-05-10] MEDS: GABAPENTIN 100 MG CAPSULE PO SCH ×2 (08:26→22:30)
[2021-05-10] MEDS: PANTOPRAZOLE 40 MG TABLET PO SCH (08:26)
[2021-05-10] MEDS: MENTHOL/ZINC OXIDE OINT 71 GM JAR TOP SCH ×2 (08:27→22:33)
[2021-05-10 08:49] LABS: Band Neutrophils 8 % (0-10); Hypochromia 1+; Lymphocytes 10 % (20-55); Microcytosis 1+; Nucleated Red Blood Cells 1 (0-5); Platelet Estimate Decreased; Segmented Neutrophils 77 % (50-85); Total Cells Counted 100
[2021-05-10] MEDS: MIRTAZAPINE 15 MG TABLET PO SCH (22:30)
[2021-05-10] MEDS: CITALOPRAM 20 MG TABLET PO SCH (22:30)
[2021-05-10] MEDS: INSULIN GLARGINE 100 UNIT/ML SUBCUT SCH (22:58)
[2021-05-11] MEDS: ALBUTEROL/IPRATROPIUM 3 ML NEB RESP TX SCH ×4 (00:20→20:24)
[2021-05-11 04:22] LABS: ABG Base Excess -4.8 MMOL/L (-2.5-2.5); ABG HCO3 20.4 MMOL/L (20-26); ABG Oxygen Saturation 86.7 % (95-100); ABG PCO2 37.9 MM HG (35-48); ABG PH 7.349 (7.35-7.45); ABG PO2 58.3 MM HG (80-95); ABG TCO2 21.6 MMOL/L (23-27); Allen Test Positive; Pt O2 Delivery Device Ventilator
[2021-05-11 05:39] LABS: ABG Base Excess -4.7 MMOL/L (-2.5-2.5); ABG HCO3 20.3 MMOL/L (20-26); ABG PCO2 37.8 MM HG (35-48); ABG PH 7.342 (7.35-7.45); ABG TCO2 19.2 MMOL/L (23-27)
[2021-05-11 05:48] LABS: Basophils % 0.6 % (0.0-0.8); Eosinophils % 0.2 % (0.00-10.9); Hematocrit 23.5 VOL% (35.7-47.0); Immature Granulocytes % 1.4 %; Immature Granulocytes Absolute 0.07 #; Lymphocytes # 0.4 10*3/uL (1.4-4.0); Lymphocytes % 8.3 % (21.3-54.2); NRBC # 0.07 10*3/uL; Neutrophils % 85.5 % (38.7-73.9); Red Blood Count 2.64 MC/CUMM (3.8-5.5); Red Cell Distribution Width 26.9 % (9.3-17.3)
[2021-05-11 05:57] LABS: Platelet Count 23 T/CUMM (130-400)
[2021-05-11 06:08] LABS: Calcium 11.1 MG/DL (8.5-10.1); Osmolality,Calculated 299.4 MOS/KG (273-304)
[2021-05-11 06:13] LABS: Band Neutrophils 2 % (0-10); Hypochromia 1+; Lymphocytes 5 % (20-55); Microcytosis 1+; Nucleated Red Blood Cells 2 (0-5); Ovalocytes Slight; Platelet Estimate Decreased; Segmented Neutrophils 87 % (50-85); Total Cells Counted 100
[2021-05-11] MEDS: HYDROCORTISONE 100 MG VIAL IV SCH ×3 (06:46→22:25)
[2021-05-11] MEDS: MEROPENEM 500 MG in SODIUM CHLORIDE 0.9% 100 ML IV SCH ×2 (06:47→17:28)
[2021-05-11] MEDS: LEVOTHYROXINE 100 MCG TABLET PO SCH (06:49)
[2021-05-11] MEDS: GABAPENTIN 100 MG CAPSULE PO SCH ×2 (08:15→22:16)
[2021-05-11] MEDS: FERROUS SULFATE 325 MG TABLET PO SCH ×2 (08:15→22:15)
[2021-05-11] MEDS: INSULIN REGULAR 100 UNIT/ML SUBCUT SCH ×4 (08:15→21:27)
[2021-05-11] MEDS: RIFAXIMIN 550 MG TABLET PO SCH ×2 (08:15→22:15)
[2021-05-11] MEDS: SODIUM BICARBONATE 650 MG TABLET PO SCH ×2 (08:15→22:15)
[2021-05-11] MEDS: MENTHOL/ZINC OXIDE OINT 71 GM JAR TOP SCH ×2 (08:15→22:08)
[2021-05-11] MEDS: PANTOPRAZOLE 40 MG VIAL IV SCH (08:15)
[2021-05-11] MEDS: LACTULOSE 20 GM/30 ML UDCUP PO SCH ×3 (08:15→22:16)
[2021-05-11] MEDS ORDERED: SODIUM CHLORIDE 0.9% 1,000 ML IV PRN (08:55)
[2021-05-11] MEDS ORDERED: POTASSIUM BICARB EFFERVESCENT 20 MEQ TAB.EFF PER TUBE ONE (10:30)
[2021-05-11] MEDS ORDERED: FUROSEMIDE 40 MG/4 ML VIAL IV ONE (11:00)
[2021-05-11] MEDS ORDERED: ALBUMIN 25% 25 GM/100 ML VIAL IV ONE (11:18)
[2021-05-11] MEDS ORDERED: SODIUM CHLORIDE 0.9% 500 ML IV ONE (14:32)
[2021-05-11] MEDS ORDERED: DIGOXIN 0.5 MG/2 ML AMP IV ONE ×2 (21:11→22:15)
[2021-05-11] MEDS ORDERED: GENTAMICIN INJ 110 MG in SODIUM CHLORIDE 0.9% 100 ML IV ONE (21:14)
[2021-05-11 21:40] LABS: Potassium 3.3 MMOL/L (3.5-5.1)
[2021-05-11] MEDS: MIRTAZAPINE 15 MG TABLET PO SCH (22:16)
[2021-05-11] MEDS: CITALOPRAM 20 MG TABLET PO SCH (22:16)
[2021-05-11] MEDS: INSULIN GLARGINE 100 UNIT/ML SUBCUT SCH (22:17)
[2021-05-12] MEDS: ALBUTEROL/IPRATROPIUM 3 ML NEB RESP TX SCH ×4 (00:44→19:10)
[2021-05-12 04:07] LABS: ABG Base Excess -6.2 MMOL/L (-2.5-2.5); ABG HCO3 19.1 MMOL/L (20-26); ABG Oxygen Saturation 92.9 % (95-100); ABG PH 7.331 (7.35-7.45); ABG PO2 72.4 MM HG (80-95); ABG TCO2 20.2 MMOL/L (23-27)
[2021-05-12 05:14] LABS: Basophils % 0.2 % (0.0-0.8); Hematocrit 20.9 VOL% (35.7-47.0); Immature Granulocytes % 1.4 %; Immature Granulocytes Absolute 0.06 #; Lymphocytes # 0.4 10*3/uL (1.4-4.0); Lymphocytes % 9.6 % (21.3-54.2); Mean Corpuscular HGB Conc 33.5 GM/DL (32-36); Mean Corpuscular Volume 91.3 FL (87-102); Mean Platelet Volume 10.8 FL (9.6-12.0); Monocytes % 4.2 % (1.7-12.7); NRBC # 0.07 10*3/uL; Neutrophils % 84.6 % (38.7-73.9); Platelet Count 43 T/CUMM (130-400); Red Blood Count 2.29 MC/CUMM (3.8-5.5); Red Cell Distribution Width 26.9 % (9.3-17.3); White Blood Count 4.3 T/CUMM (4-12)
[2021-05-12 05:38] LABS: Band Neutrophils 5 % (0-10); Burr Cells Slight; Hypochromia 1+; Lymphocytes 5 % (20-55); Microcytosis 1+; Nucleated Red Blood Cells 1 (0-5); Ovalocytes Slight; Platelet Estimate Decreased; Segmented Neutrophils 86 % (50-85); Total Cells Counted 100
[2021-05-12 05:39] LABS: Albumin 2.8 G/DL (3.4-5.0); Bilirubin,Total 2.9 MG/DL (0.20-1.00); Calcium 11.7 MG/DL (8.5-10.1); Osmolality,Calculated 294.4 MOS/KG (273-304); Potassium 3.4 MMOL/L (3.5-5.1); Total Protein 4.8 G/DL (6.4-8.2)
[2021-05-12] MEDS: HYDROCORTISONE 100 MG VIAL IV SCH ×3 (06:36→21:29)
[2021-05-12] MEDS: LEVOTHYROXINE 100 MCG TABLET PO SCH (06:37)
[2021-05-12] MEDS: MEROPENEM 500 MG in SODIUM CHLORIDE 0.9% 100 ML IV SCH ×2 (07:19→17:40)
[2021-05-12] MEDS: PANTOPRAZOLE 40 MG VIAL IV SCH (08:20)
[2021-05-12] MEDS: GABAPENTIN 100 MG CAPSULE PO SCH ×2 (08:25→21:29)
[2021-05-12] MEDS: LACTULOSE 20 GM/30 ML UDCUP PO SCH ×3 (08:25→21:30)
[2021-05-12] MEDS: FERROUS SULFATE 325 MG TABLET PO SCH ×2 (08:25→21:29)
[2021-05-12] MEDS: RIFAXIMIN 550 MG TABLET PO SCH ×2 (08:25→21:29)
[2021-05-12] MEDS: SODIUM BICARBONATE 650 MG TABLET PO SCH ×2 (08:25→21:30)
[2021-05-12] MEDS: MENTHOL/ZINC OXIDE OINT 71 GM JAR TOP SCH ×2 (08:50→21:30)
[2021-05-12] MEDS: PHENYLEPHRINE DRIP 40 MG/250 ML PREMIX IV PRN (10:15)
[2021-05-12] MEDS: INSULIN REGULAR 100 UNIT/ML SUBCUT SCH ×2 (11:15→18:20)
[2021-05-12] MEDS ORDERED: FUROSEMIDE 40 MG/4 ML VIAL IV ONE (11:24)
[2021-05-12] MEDS ORDERED: ATROPINE 1 MG/10 ML SYRINGE ONE (17:58)
[2021-05-12] MEDS: ATROPINE 1 MG/10 ML SYRINGE IV PRN ×2 (17:58→18:07)
[2021-05-12 19:02] VITALS: BP 92/56
[2021-05-12] MEDS: INSULIN GLARGINE 100 UNIT/ML SUBCUT SCH (21:29)
[2021-05-12] MEDS: MIRTAZAPINE 15 MG TABLET PO SCH (21:30)
[2021-05-12] MEDS: CITALOPRAM 20 MG TABLET PO SCH (21:30)
[2021-05-13] MEDS: INSULIN REGULAR 100 UNIT/ML SUBCUT SCH ×5 (00:11→23:42)
[2021-05-13] MEDS: ALBUTEROL/IPRATROPIUM 3 ML NEB RESP TX SCH ×4 (01:48→20:15)
[2021-05-13 03:43] LABS: ABG Base Excess -8.4 MMOL/L (-2.5-2.5); ABG HCO3 17.5 MMOL/L (20-26); ABG Oxygen Saturation 90.8 % (95-100); ABG PCO2 44.3 MM HG (35-48); ABG PH 7.233 (7.35-7.45); ABG PO2 71.7 MM HG (80-95); ABG TCO2 17.9 MMOL/L (23-27)
[2021-05-13 04:30] LABS: Basophils % 0.2 % (0.0-0.8); Eosinophils % 0.2 % (0.00-10.9); Hematocrit 21.7 VOL% (35.7-47.0); Hemoglobin 7.2 GM/DL (12.0-16.0); Immature Granulocytes % 0.8 %; Immature Granulocytes Absolute 0.05 #; Lymphocytes # 0.5 10*3/uL (1.4-4.0); Lymphocytes % 8.2 % (21.3-54.2); Mean Corpuscular HGB Conc 33.2 GM/DL (32-36); Mean Corpuscular Volume 91.6 FL (87-102); Monocytes % 6.6 % (1.7-12.7); NRBC # 0.11 10*3/uL; Red Blood Count 2.37 MC/CUMM (3.8-5.5); Red Cell Distribution Width 27.2 % (9.3-17.3); White Blood Count 6.2 T/CUMM (4-12)
[2021-05-13 04:38] LABS: Platelet Count 29 T/CUMM (130-400)
[2021-05-13 04:51] LABS: Band Neutrophils 1 % (0-10); Hypochromia 1+; Lymphocytes 7 % (20-55); Microcytosis Slight; Nucleated Red Blood Cells 2 (0-5); Platelet Estimate Decreased; Segmented Neutrophils 88 % (50-85); Total Cells Counted 100
[2021-05-13 05:00] LABS: Calcium 12.3 MG/DL (8.5-10.1); Osmolality,Calculated 300.4 MOS/KG (273-304); Potassium 3.1 MMOL/L (3.5-5.1)
[2021-05-13 05:02] LABS: Albumin 2.2 G/DL (3.4-5.0); Bilirubin,Total 3.9 MG/DL (0.20-1.00); Calcium 12.3 MG/DL (8.5-10.1); Osmolality,Calculated 302.3 MOS/KG (273-304); Total Protein 4.6 G/DL (6.4-8.2)
[2021-05-13] MEDS: HYDROCORTISONE 100 MG VIAL IV SCH ×3 (05:42→22:32)
[2021-05-13] MEDS: LEVOTHYROXINE 100 MCG TABLET PO SCH (05:42)
[2021-05-13] MEDS: MEROPENEM 500 MG in SODIUM CHLORIDE 0.9% 100 ML IV SCH ×2 (05:42→18:04)
[2021-05-13] MEDS: MENTHOL/ZINC OXIDE OINT 71 GM JAR TOP SCH ×2 (08:18→21:37)
[2021-05-13] MEDS: PANTOPRAZOLE 40 MG VIAL IV SCH (09:03)
[2021-05-13] MEDS: RIFAXIMIN 550 MG TABLET PO SCH ×2 (09:03→21:36)
[2021-05-13] MEDS: SODIUM BICARBONATE 650 MG TABLET PO SCH ×2 (09:03→21:36)
[2021-05-13] MEDS: LACTULOSE 20 GM/30 ML UDCUP PO SCH ×3 (09:04→21:36)
[2021-05-13] MEDS: FERROUS SULFATE 325 MG TABLET PO SCH ×2 (09:04→21:36)
[2021-05-13] MEDS: GABAPENTIN 100 MG CAPSULE PO SCH ×2 (09:04→21:37)
[2021-05-13] MEDS: PHENYLEPHRINE DRIP 40 MG/250 ML PREMIX IV PRN ×2 (09:46→22:03)
[2021-05-13] MEDS: MIRTAZAPINE 15 MG TABLET PO SCH (21:37)
[2021-05-13] MEDS: CITALOPRAM 20 MG TABLET PO SCH (21:37)
[2021-05-13] MEDS: INSULIN GLARGINE 100 UNIT/ML SUBCUT SCH (21:47)
[2021-05-14] MEDS: ALBUTEROL/IPRATROPIUM 3 ML NEB RESP TX SCH ×3 (01:00→13:05)
[2021-05-14 03:34] LABS: Basophils % 0.2 % (0.0-0.8); Eosinophils % 0.1 % (0.00-10.9); Hematocrit 20.7 VOL% (35.7-47.0); Hemoglobin 6.9 GM/DL (12.0-16.0); Immature Granulocytes % 1.1 %; Immature Granulocytes Absolute 0.12 #; Lymphocytes # 0.6 10*3/uL (1.4-4.0); Lymphocytes % 5.8 % (21.3-54.2); Mean Corpuscular HGB Conc 33.3 GM/DL (32-36); Mean Corpuscular Volume 91.2 FL (87-102); Monocytes % 3.1 % (1.7-12.7); NRBC # 0.22 10*3/uL; Neutrophils % 89.7 % (38.7-73.9); Red Blood Count 2.27 MC/CUMM (3.8-5.5); Red Cell Distribution Width 27.3 % (9.3-17.3); White Blood Count 10.7 T/CUMM (4-12)
[2021-05-14 03:36] LABS: Platelet Count 17 T/CUMM (130-400)
[2021-05-14 03:52] LABS: Calcium 12.9 MG/DL (8.5-10.1); Osmolality,Calculated 299.3 MOS/KG (273-304); Potassium 3.5 MMOL/L (3.5-5.1)
[2021-05-14 03:56] LABS: Albumin 2.4 G/DL (3.4-5.0); Band Neutrophils 5 % (0-10); Bilirubin,Total 5.2 MG/DL (0.20-1.00); Calcium 12.7 MG/DL (8.5-10.1); Hypochromia 2+; Lymphocytes 3 % (20-55); Microcytosis Slight; Nucleated Red Blood Cells 1 (0-5); Osmolality,Calculated 291.8 MOS/KG (273-304); Platelet Estimate Decreased; Potassium 3.4 MMOL/L (3.5-5.1); Segmented Neutrophils 90 % (50-85); Total Cells Counted 100; Total Protein 4.7 G/DL (6.4-8.2)
[2021-05-14 04:51] LABS: ABG Base Excess -10.8 MMOL/L (-2.5-2.5); ABG HCO3 15.7 MMOL/L (20-26); ABG Oxygen Saturation 98.3 % (95-100); ABG PCO2 32.8 MM HG (35-48); ABG PH 7.274 (7.35-7.45); ABG TCO2 14.5 MMOL/L (23-27)
[2021-05-14] MEDS: INSULIN REGULAR 100 UNIT/ML SUBCUT SCH ×2 (05:31→11:54)
[2021-05-14] MEDS: LEVOTHYROXINE 100 MCG TABLET PO SCH (05:37)
[2021-05-14] MEDS: HYDROCORTISONE 100 MG VIAL IV SCH ×2 (05:37→14:29)
[2021-05-14] MEDS: MEROPENEM 500 MG in SODIUM CHLORIDE 0.9% 100 ML IV SCH (05:37)
[2021-05-14] MEDS: MENTHOL/ZINC OXIDE OINT 71 GM JAR TOP SCH (08:23)
[2021-05-14] MEDS: FERROUS SULFATE 325 MG TABLET PO SCH (08:23)
[2021-05-14] MEDS: LACTULOSE 20 GM/30 ML UDCUP PO SCH (08:23)
[2021-05-14] MEDS: SODIUM BICARBONATE 650 MG TABLET PO SCH (08:24)
[2021-05-14] MEDS: GABAPENTIN 100 MG CAPSULE PO SCH (08:24)
[2021-05-14] MEDS: RIFAXIMIN 550 MG TABLET PO SCH (08:24)
[2021-05-14] MEDS: PANTOPRAZOLE 40 MG VIAL IV SCH (08:24)
[2021-05-14] MEDS: PHENYLEPHRINE DRIP 40 MG/250 ML PREMIX IV PRN (12:16)
[2021-05-14] MEDS ORDERED: ALBUTEROL/IPRATROPIUM 3 ML NEB RESP TX ONE (19:07)
[2021-05-15] MEDS: PHENYLEPHRINE DRIP 40 MG/250 ML PREMIX IV PRN (03:42)
[2021-05-15] MEDS ORDERED: LORazepam 2 MG/1 ML VIAL IV PRN (10:54)
[2021-05-15] MEDS ORDERED: MORPHINE 2 MG/1 ML SYRINGE IV PRN ×2 (10:55→10:58)
== END 2021-05-15 11:16 | disposition expired | DRG 870 ==
LOC: N.CC 20:55 → SUATTDRO 20:55 → N.5E 22:41 → N.ICU 05-09 09:46
PROVIDERS: ADMIT Internal Medicine; ATTEND Internal Medicine